=== PATIENT | female | born 1955 | race Caucasian/White ===

== ENCOUNTER 2017-04-28 10:09 | Outpatient (CLI) | payer OTHER ==
--- NOTE | 2017-04-28 21:58 | RAD ---
THORACIC SPINE 04/28/17 AP and lateral views are compared with the prior study dated 10/05/16. The patient is extremely osteoporotic which greatly obscures bony detail. Anterior compressions of T 11 and T12 are approximately the same as before. Regarding T9 and T10, There is biconcave scalloping of the end plates which seems to have worsened in the interval. Additionally, there is a little compr ession of T8 which seems more so than before. It becomes progressively harder to see the vertebrae a donya this point, but none are grossly compressed, as best as can be seen on the study. Scoliosis is p resent as noted before. IMPRESSION: Compressions of T11 and T12 that are similar to the prior study. T8, T9 and T10 seem to be compressin g further and/or have greater amounts of concave scalloping of their end plates. There is no dislocat ion POS: HOME
== END 2017-04-28 10:10 | disposition home or self-care (01) ==
LOC: BURRAD 10:09
PROVIDERS: ATTEND Family Medicine
DX: M80.08XS Age-related osteoporosis with current pathological fracture, vertebra(e), sequela (principal); G95.20 Unspecified cord compression
CPT/HCPCS: 72070

== ENCOUNTER 2017-07-14 16:11 | Outpatient (CLI) | payer OTHER ==
--- NOTE | 2017-07-14 21:18 | RAD ---
CHEST TWO VIEWS: 07/14/17 Comparison is made with the 05/26/17 study. COPD with chronic parenchymal changes in the lungs is noted as usual. There is a nodular area in the right upper lobe apex that is similar to the prior study and has not changed. A recent CT suggested t hat this is connected to areas of scarring here. There does appear to be some lingular scarring. I do not see a definite acute infiltrate. No effusion was seen. The heart size is normal. IMPRESSION: COPD with chronic parenchymal changes but no definite acute finding. POS: HOME
== END 2017-07-14 16:12 | disposition home or self-care (01) ==
LOC: BURRAD 16:11
PROVIDERS: ATTEND Family Medicine
DX: J40 Bronchitis, not specified as acute or chronic (principal); J44.9 Chronic obstructive pulmonary disease, unspecified
CPT/HCPCS: 71046

== ENCOUNTER 2017-10-24 16:04 | Emergency (ER) | payer SELFPAY ==
[2017-10-24] MEDS ORDERED: Albuterol Sulfate 1.25 MG/3 ML NEB ONE (16:44)
[2017-10-24] MEDS ORDERED: HYDROcodone/Acetaminophen 5/325 mg Tablet ONE (17:00)
[2017-10-24 17:02] LABS: Hemoglobin 12.2 g/dL (12.0-16.0); Mean Corpuscular HGB CONC 38.9 g/dL (32.0-36.0); Mean Corpuscular Hemoglobin 32.9 pg (27.0-31.0); Mean Corpuscular Volume 84.7 fL (78.0-98.0); Red Blood Cell (RBC) Count 3.71 mill/uL (4.20-5.40); White Blood Cell (WBC) Count 7.7 thou/uL (4.8-10.8)
[2017-10-24 17:03] LABS: %Eosinophils 0.4 % (0.0-10.0); %Lymphocytes 14.6 % (21.0-51.0); %Monocytes 8.5 % (0.0-10.0); %Neutrophils 75.6 % (42.0-75.0); Manual Diff?? YES; Mean Platelet Volume 4.7 fL (7.4-10.4); Platelet Count 430 thou/uL (130-400); RBC Distribution Width 10.9 % (11.5-14.5)
[2017-10-24 17:04] LABS: #Basophils 0.1 thou/uL (0.0-0.2); #Lymphocytes 1.1 thou/uL (1.20-3.40); #Monocytes 0.7 thou/uL (0.11-0.59); #Neutrophils 5.8 thou/uL (1.40-6.50); ALT (SGPT) 11 U/L (8-55); AST (SGOT) 13 U/L (5-34); Albumin 3.8 g/dL (3.4-4.8); Alkaline Phosphatase 103 U/L (40-150); Anion Gap 13 mmol/L (10-20); BUN (Urea Nitrogen) 8 mg/dL (9.8-20.1); Bilirubin, Total 0.4 mg/dL (0.2-1.2); Calc. Creatinine Clearance 0 mL/min (70-130); Calcium 9.2 mg/dL (7.8-10.44); Carbon Dioxide 23 mmol/L (23-31); Chloride 97 mmol/L (98-107); Estimated GFR-MDRD Greater than 90; Globulin 2.2 g/dL (2.4-3.5); Glucose 109 mg/dL (80-115); MDiff Complete? YES; Potassium 3.9 mmol/L (3.5-5.1); Sodium 129 mmol/L (136-145)
[2017-10-24 17:06] LABS: CKMB 1.9 ng/mL (0-6.6); Troponin I Less than 0.010 ng/mL (< 0.028)
[2017-10-24] MEDS ORDERED: methylPREDNISolone Sod Succ/PF 125 MG/2 ML VIAL ONE (17:55)
[2017-10-24 18:49] LABS: Clarity Clear (Clear)
[2017-10-24 18:50] LABS: Bilirubin Negative (Negative); Blood, Urine Negative (Negative); Glucose, Urine (Dipstick) Negative (Negative); Leukocyte Moderate (Negative); Nitrite Negative (Negative); Protein, Urine (Dipstick) Negative (Neg-Trace); Urobilinogen 0.2 mg/dL (0.2-1.0)
[2017-10-24 18:57] LABS: Bacteria/HPF 1+ HPF (None Seen); RBC/HPF 0-3 HPF (0-3); Squamous Epithelial 0-3 HPF (0-3)
--- NOTE | 2017-10-24 19:12 | RAD ---
PA AND LATERAL CHEST: Date: 10-24-17 Comparison: 07-14-17 FINDINGS: The heart size remains normal. Emphysematous changes are present as usual. There are some areas of sc arring in the apices and around the lingula. They really do not appear substantially different in the interval. I cannot point to any lobar infiltrate, significant effusion, or pulmonary vascular conges tion. IMPRESSION: COPD but no acute findings. POS: HOME
== END 2017-10-24 19:32 | disposition short-term general hospital (02) ==
LOC: BURERS 16:04
DX: J44.1 Chronic obstructive pulmonary disease with (acute) exacerbation (principal); E87.1 Hypo-osmolality and hyponatremia; F32.9 Major depressive disorder, single episode, unspecified; F41.9 Anxiety disorder, unspecified; Z87.891 Personal history of nicotine dependence; Z79.899 Other long term (current) drug therapy; Z79.51 Long term (current) use of inhaled steroids
CPT/HCPCS: 71046; 80053; 81003; 81015; 82553; 83605; 84484; 85025; 87086; 93005; 96365; 96375; J1956; J2930

== ENCOUNTER 2017-11-17 10:53 | Emergency (ER) | payer SELFPAY ==
[2017-11-17] MEDS ORDERED: Magnesium Sulfate 2 GM/100 ML BAG ONE (11:07)
[2017-11-17 11:14] LABS: #Basophils 0.1 thou/uL (0.0-0.2); #Lymphocytes 0.4 thou/uL (1.20-3.40); #Monocytes 0.8 thou/uL (0.11-0.59); #Neutrophils 9.8 thou/uL (1.40-6.50); %Basophils 0.5 % (0.0-1.0); %Lymphocytes 3.9 % (21.0-51.0); %Monocytes 6.8 % (0.0-10.0); %Neutrophils 88.8 % (42.0-75.0); Hemoglobin 12.3 g/dL (12.0-16.0); Mean Corpuscular HGB CONC 34.8 g/dL (32.0-36.0); Mean Corpuscular Hemoglobin 32.5 pg (27.0-31.0); Mean Corpuscular Volume 93.5 fL (78.0-98.0); Mean Platelet Volume 6.5 fL (7.4-10.4); Platelet Count 313 thou/uL (130-400); RBC Distribution Width 11.6 % (11.5-14.5); Red Blood Cell (RBC) Count 3.79 mill/uL (4.20-5.40)
[2017-11-17 11:31] LABS: ALT (SGPT) 16 U/L (8-55); AST (SGOT) 12 U/L (5-34); Albumin 3.9 g/dL (3.4-4.8); Alkaline Phosphatase 82 U/L (40-150); Anion Gap 13 mmol/L (10-20); BUN (Urea Nitrogen) 10 mg/dL (9.8-20.1); Bilirubin, Total 0.8 mg/dL (0.2-1.2); Calc. Creatinine Clearance 0 mL/min (70-130); Calcium 9.1 mg/dL (7.8-10.44); Carbon Dioxide 25 mmol/L (23-31); Chloride 95 mmol/L (98-107); Estimated GFR-MDRD Greater than 90; Globulin 2.2 g/dL (2.4-3.5); Glucose 112 mg/dL (80-115); Potassium 4.6 mmol/L (3.5-5.1); Protein, Total 6.1 g/dL (6.0-8.3); Sodium 128 mmol/L (136-145)
[2017-11-17 11:32] LABS: CKMB 1.5 ng/mL (0-6.6)
[2017-11-17] MEDS ORDERED: Fentanyl 100 MCG/2 ML VIAL ONE (11:39)
[2017-11-17] MEDS ORDERED: methylPREDNISolone Sod Succ/PF 125 MG/2 ML VIAL ONE (11:39)
[2017-11-17] MEDS ORDERED: Sodium Chloride 0.9% 100 ML ONE (12:11)
[2017-11-17] MEDS ORDERED: cefTRIAXone\\ROCEPHIN 1 GM VIAL ONE (12:11)
[2017-11-17 12:13] LABS: Troponin I Less than 0.010 ng/mL (< 0.028)
--- NOTE | 2017-11-17 14:58 | RAD ---
PORTABLE CHEST: Date: 11-17-17 Time: 1051 Comparison: 11-15-17 study from [facility]. FINDINGS: The lungs are hyperexpanded as usual. There are some small amounts of chronic prominence of some of t he markings, but they have not changed over the interval. It is difficult to see the apices well in t his patient. No sign of acute pneumonia or pleural effusion was found. The heart size is normal. Ther e is no congestive change. IMPRESSION: Chronic changes but no acute findings. POS: HOME
== END 2017-11-17 12:50 | disposition short-term general hospital (02) ==
LOC: BURERS 10:53
DX: J44.1 Chronic obstructive pulmonary disease with (acute) exacerbation (principal); E87.1 Hypo-osmolality and hyponatremia; F41.9 Anxiety disorder, unspecified; F32.9 Major depressive disorder, single episode, unspecified; Z87.891 Personal history of nicotine dependence; Z79.899 Other long term (current) drug therapy
CPT/HCPCS: 36415; 71045; 80053; 82553; 83880; 84484; 85025; 93005; 94640; 94760; 96365; 96367; 96375; J0696; J2930; J3010; J3475; J7050; J7620